=== PATIENT | male | born 1995 | race Caucasian/White ===

== ENCOUNTER 2021-06-22 09:19 | Emergency (ER) | payer BC, SELFPAY ==
[2021-06-22] VITALS (31 sets, daily range): BP systolic 101–119; BP diastolic 63–82; PULSE 80–105; RESP 10–27; TEMP 37.8; O2SAT 91–100
--- NOTE | ~2021-06-22 | CT_ITS ---
EXAMINATION: CTA chest PE protocol DATE: 06/22/2021 11:53 INDICATION: Elevated d-dimer TECHNIQUE: Computed tomography angiography (CTA) of the chest was performed with 100 mL Omnipaque-350 intravenous contrast timed to evaluate the pulmonary arteries. Coronal maximum intensity projection 3D-reconstructions were created by the technologist. Automated exposure control and iterative reconst ruction technique were employed. Exam dose: 301.57 mGy-cm total exam DLP. COMPARISON: 06/22/2021 portable AP chest FINDINGS: The lung bases are clear of infiltrate or consolidation. There is minimal discoid atelectas is or scarring at the base of the left lower lobe. There is diagnostic contrast enhancement of the pulmonary arteries and no evidence of pulmonary embol ism. Normal heart size. No thoracic aortic aneurysm or dissection. No pericardial or pleural effusion. Normal morphology of the adrenal glands. Small sliding hiatal hernia. IMPRESSION: No evidence of pulmonary embolism Reviewed, dictated and finalized at [facility]. Reviewed, dictated and finalized at [facility]. 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
--- NOTE | ~2021-06-22 | XR_ITS ---
XR chest 1V portable DATE: 06/22/2021 10:45 INDICATION: Shortness of breath. Covid-positive. TECHNIQUE: Portable upright AP chest on 06/22/2021 1040 hours COMPARISON: None FINDINGS: There is bilateral pulmonary hyperinflation. No pulmonary infiltrate or consolidation, pleu ral effusion or pulmonary vascular congestion or pneumothorax is detected. Heart size is normal. No h ilar or mediastinal enlargement. IMPRESSION: Bilateral hyperinflation; no active cardiopulmonary disease Reviewed, dictated and finalized at [facility]. 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
--- NOTE | 2021-06-22 10:28 | ECG_ITS ---
Measurements Intervals [place] Rate: 70 P: 50 MD: 135 QRS: 67 QRSD: 108 T: 31 QT: 370 QTc: 402 Interpretive Statements SINUS RHYTHM WITH SINUS ARRHYTHMIA INCOMPLETE RIGHT BUNDLE BRANCH BLOCK BORDERLINE ECG Electronically Signed On 06-22-2021 14:31:40 GUEST ATTENDANT by Dl Whiting D.O.
--- NOTE | 2021-06-22 10:29 | ED.GENADULT ---
HPI - General Adult General Chief complaint: Upper Respiratory Infection Stated complaint: covid +, feels bad Time Seen by Provider: 06/22/21 10:07 Source: patient Mode of arrival: ambulatory Limitations: no limitations History of Present Illness HPI narrative: Patient presents for evaluation of cough and fever. He indicates 6 days ago he developed his symptoms. He had a rapid Covid test and a PCR performed five days ago. Rapid was positive and PCR was negative. He states his symptoms have been worsening which prompted him to come to the ER for further evaluation. He states his cough is productive of green sputum and he has mild shortness of breath. He has mild pleuritic chest pain occasionally. He denies any abdominal pain, nausea, vomiting, diarrhea. Is experienced fatigue. He is taking some [id number] medications with some improvement in symptoms thereafter. No personal hx of VTE. He does not smoke. He received J+J COVID vaccination earlier this year. Related Data Home Medications Medication Instructions Recorded Confirmed No Home Medications 06/22/21 06/22/21 Allergies Allergy/AdvReac Type Severity Reaction Status Date / Time No Known Allergies Allergy Verified 06/22/21 09:46 Review of Systems Review of Systems: CONSTITUTIONAL: Reports fever and fatigue. Denies chills, or sweats. EYES: Denies visual changes, redness, or discharge. ENT: Denies rhinorrhea, congestion, sore throat, or otalgia. CARDIOVASCULAR: Reports occasional mild pleuritic chest pain. Denies chest pain otherwise. Denies palpitations, or edema. RESPIRATORY: Reports productive cough of green sputum and mild SOB. GASTROINTESTINAL: Denies abdominal pain, nausea, vomiting, or diarrhea. GENITOURINARY: Denies dysuria or hematuria. SKIN: Denies rash or itching. MUSCULOSKELETAL: Denies back pain, joint pain, or myalgia. NEUROLOGIC: Denies headache, numbness, dizziness, or weakness. PSYCHIATRIC: Denies anxiety or depression. COUNT INCLUDES THE [facility] Past Medical History Medical History (Updated 06/22/21 @ 13:52 by Reid Marie, SABRA, ) No pertinent past medical history Surgical History Surgical History History of wisdom tooth extraction Family History Family History Father Hypertension Social History Social History (Updated 06/22/21 @ 10:35 by NAGA SerraP, ) Smoking status: Never smoker Alcohol intake: current Alcohol use details: Occasional Substance use: never Gender identity (if verbalized by the patient): Male Sexual Orientation (if Verbalized by the Patient): Straight or Heterosexual Spiritual care concerns: No Exam Narrative: GENERAL: Well-appearing, well-nourished, and in no acute distress. HEAD: Normocephalic, atraumatic. EYES: PERRLA and EOMI. ENT: Nares clear, no rhinorrhea or epistaxis. Mucous membranes moist. Oropharynx without tonsillar hypertrophy exudate or other lesions. Bilateral TMs pearly jarvis nonbulging NECK: Supple. No adenopathy or masses. No carotid bruits or JVD CHEST: Clear to auscultation. Cough noted on exam. No respiratory distress. No wheezes rales or rhonchi HEART: Rate 104 and normal rhythm. No murmur heard. Normal peripheral pulses. ABDOMEN: Soft, nontender, nondistended, normal active bowel sounds. EXTREMITIES: Normal range of motion. No edema. SKIN: Warm, dry, no rash. NEURO: No focal deficits. Alert and oriented x3. PSYCH: Normal mood and affect. Course Course Emergency Course: This is a 25-year-old male with known history of COVID presented today with persistent symptoms. He was initially tachycardic. Chest x-ray showed no acute active disease. CTA chest was obtained and was negative. He appeared well clinically. Saturations remained 100% on RA. He was advised to remain hydrated and can take OTC agents for symptom reduction. He was advised to follo
[2021-06-22 10:52] LABS: Basophils Percent Auto 0.7 % (0.2-1.2); Eosinophils Percent Auto 0.2 % (0-4.4); Hematocrit 45.5 % (42.0-52.0); Hemoglobin 15.6 g/dL (14.0-18.0); Immature Granulocyte Absolute 0.02 K/mm3 (0.00-0.031); Immature Granulocyte Percent A 0.5 % (0-0.5); Lymphocytes Absolute Auto 0.99 K/mm3 (0.9-3.2); Lymphocytes Percent Auto 23.7 % (18.3-44.2); Mean Corpuscular HGB Conc 34.3 g/dl (32-36); Mean Corpuscular Hemoglobin 31.2 pg (26-34); Mean Platelet Volume 8.5 fl (7.4-10.4); Monocytes Absolute Auto 0.8 K/mm3 (0.1-0.6); Monocytes Percent Auto 18.2 % (2.6-8.5); Neutrophils Absolute Auto 2.4 K/mm3 (1.3-6.7); Neutrophils Percent Auto 56.7 % (45.5-73.1); Platelet Count Result 173 k/mm3 (150-375); Red Cell Distribution Width 11.9 % (11.5-14.5); White Blood Count 4.2 K/mm3 (4.5-10.0)
[2021-06-22 11:01] LABS: INR 0.9; Prothrombin Time 12.5 Seconds (11.1-14.7)
[2021-06-22 11:02] LABS: Partial Thromboplastin Time 31.1 SECONDS (22.3-36.8)
[2021-06-22 11:04] LABS: Alanine Aminotransferase 83 U/L (4-50); Albumin Level 4.3 g/dL (3.5-5.1); Alkaline Phosphatase 60 U/L (38-126); Anion Gap 6 mmol/L (8-16); Aspartate Amino Transferase 61 U/L (17-59); Bilirubin,Total 0.3 mg/dL (0.2-1.3); Blood Urea Nitrogen 9 mg/dL (9-20); Calcium 8.7 mg/dL (8.4-10.2); Carbon Dioxide 25 mmol/L (22-30); Chloride 102 mmol/L (98-107); Estimated CRCL calculation 121 ml/min; Estimated Glomerular Filt Rate > 60; Glucose 91 mg/dL (65-110); Potassium 4.6 mmol/L (3.4-5.0); Sodium 133 mmol/L (137-145)
[2021-06-22 11:05] LABS: D Dimer 0.49 ug/mL (<0.48)
[2021-06-22] MEDS: ACETAMINOPHEN 325 MG TABLET 650 MG PO (11:06)
[2021-06-22] MEDS: SODIUM CHLORIDE 0.9% IV 1,000 ML 999 ML IV CONT (11:07)
[2021-06-22 11:16] LABS: Troponin I < 0.012 ng/mL (0.000-0.034)
[2021-06-22 11:51] LABS: Add Urine Microscopic? YES; Appearance Urine Clear (Clear); Bilirubin Urine Negative (Negative); Blood Urine Negative (Negative); Color Urine Yellow (Yellow); Glucose Urine UA Negative (Negative); Ketones Urine Negative (Negative); Leukocyte Esterase Ur Negative LEU/UL (Negative); Mucus Urine Rare /lpf; Nitrate Urine Negative (Negative); Protein Urine Negative (Negative); RBC Urine 0-2 /hpf (0-2); Specific Grav Ur 1.024 (1.001-1.035); Squamous Epithelial Cell Urine Rare /hpf (Few); WBC Urine 0-3 /hpf
== END 2021-06-22 14:20 | disposition home or self-care (01) ==
PROVIDERS: Emergency Provider Nurse Practitioner; PCP Family Medicine
DX: U07.1 COVID-19 (principal); R06.02 Shortness of breath
CPT/HCPCS: 36415; 71045; 71275; 80053; 81001; 84484; 85025; 85380; 85610; 85730; 93005; 96360; 96361; 99284; A9270; J7030; Q9967